=== PATIENT | male | born 1970 | race Caucasian/White ===

== ENCOUNTER 2020-10-25 16:18 | Emergency (ER) | payer MEDICARE ==
[~2020-10-25 16:18] MED LIST: BENADRYL 50MG C50 MG PO; FLOMAX0.4 MG PO; MEDROL4 MG PO; NORCO 5-325 TA1 EACH PO; PERCOCET 5/325 T1 EA PO; PREDNISONE20 MG PO; TORADOL 10 MG T10 MG PO; ZOFRAN4 MG PO
[2020-10-25 17:17] LABS: HEMOGLOBIN 14.9 gm/dl (14.0-17.5); RED BLOOD COUNT 5.1 M/UL (4.20-5.50)
[2020-10-25 17:33] LABS: BUN/CREATININE RATIO 19 (0-10)
== END 2020-10-25 19:15 | disposition short-term general hospital (02) ==
LOC: ER1 16:18
PROVIDERS: Family Medicine
DX: T23.202A Burn of second degree of left hand, unspecified site, initial encounter (principal); T20.20XA Burn of second degree of head, face, and neck, unspecified site, initial encounter; T23.201A Burn of second degree of right hand, unspecified site, initial encounter; M54.5 Low back pain; G89.29 Other chronic pain; Z79.899 Other long term (current) drug therapy; X08.8XXA Exposure to other specified smoke, fire and flames, initial encounter; Z23 Encounter for immunization
CPT/HCPCS: 73030; 80053; 85025; 90471; 90715; 99284

== ENCOUNTER 2021-05-15 20:39 | Emergency (ER) | payer MEDICARE ==
[2021-05-15 21:22] LABS: HEMOGLOBIN 14.8 gm/dl (14.0-17.5); RED BLOOD COUNT 5.14 M/UL (4.20-5.50); WHITE BLOOD COUNT 6.4 K/UL (4.5-11.0)
[2021-05-16 00:04] LABS: BUN/CREATININE RATIO 15 (0-10)
== END 2021-05-15 23:35 | disposition home or self-care (01) ==
LOC: ER1 20:39
PROVIDERS: Student in an Organized Health Care Education/Training Program
DX: U07.1 COVID-19 (principal)
CPT/HCPCS: 71045; 80053; 82550; 82553; 83874; 84484; 85025; 93005; 99285; U0002

== ENCOUNTER 2021-05-21 18:26 | Emergency (ER) | payer MEDICARE ==
[2021-05-21 20:05] LABS: RED BLOOD COUNT 3.78 M/UL (4.20-5.50); WHITE BLOOD COUNT 8.4 K/UL (4.5-11.0)
[2021-05-21 20:21] LABS: BUN/CREATININE RATIO 17 (0-10)
[2021-05-21] MEDS ORDERED: AZITHROMYCIN250 MG PO (23:47)
== END 2021-05-21 23:59 | disposition left against medical advice (07) ==
LOC: ER1 18:26
PROVIDERS: Family Medicine
DX: U07.1 COVID-19 (principal); J12.82 Pneumonia due to coronavirus disease 2019; R31.9 Hematuria, unspecified; F15.10 Other stimulant abuse, uncomplicated; D69.6 Thrombocytopenia, unspecified; M25.512 Pain in left shoulder; M54.2 Cervicalgia
CPT/HCPCS: 51701; 70450; 71045; 72125; 72128; 72131; 73030; 80053; 80307; 81001; 82550; 82553; 83605; 83735; 83874; 84439; 84443; 84484; 85025; 93005; 99285